=== PATIENT | female | born 1985 | race Two or more races ===

== ENCOUNTER 2018-08-07 22:24 | Emergency (ER) | payer MEDICAID ==
[~2018-08-07] VITALS: Ht 170.2 cm; Wt 81.2 kg
[2018-08-07 22:37] VITALS: BP 109/70
== END 2018-08-08 03:06 | disposition left against medical advice (07) ==
LOC: ER 22:30
DX: R19.7 Diarrhea, unspecified (principal); Z53.21 Procedure and treatment not carried out due to patient leaving prior to being seen by health care provider